=== PATIENT | female | born 1965 ===

== ENCOUNTER 2020-05-19 09:58 | Emergency (ER) | payer OTHER ==
[~2020-05-19] VITALS: Ht 157.5 cm; Wt 77.1 kg
[2020-05-19] MEDS ORDERED: ZITHROMAX500 MG PO (12:59)
== END 2020-05-19 13:36 | disposition home or self-care (01) ==
LOC: ER 09:58
DX: R06.02 Shortness of breath (principal); B96.0 Mycoplasma pneumoniae [M. pneumoniae] as the cause of diseases classified elsewhere; M79.661 Pain in right lower leg; F06.4 Anxiety disorder due to known physiological condition; Z03.818 Encounter for observation for suspected exposure to other biological agents ruled out